=== PATIENT | male | born 1995 | race Caucasian/White ===

== ENCOUNTER 2017-01-21 21:12 | Emergency (ER) | payer MEDICARE, OTHER | END 2017-01-21 22:43 | disposition home or self-care (01) | LOC: ER1 21:12 | DX: S13.9XXA Sprain of joints and ligaments of unspecified parts of neck, initial encounter (principal); V49.40XA Driver injured in collision with unspecified motor vehicles in traffic accident, initial encounter | CPT/HCPCS: 70110; 72040; 99284 ==